=== PATIENT | female | born 1960 | race Caucasian/White ===

== ENCOUNTER → 2017-04-28 14:21 | Outpatient (CLI) | payer BC, SELFPAY ==
[2017-04-30 08:22] LABS: Immunoglobulin A, Qn 281 mg/dL (87-352); Immunoglobulin G, Qn 1238 mg/dL (700-1600)
[2017-04-30 18:30] LABS: Immunoglobulin M, Qn 120 mg/dL (26-217)
[2017-05-02 13:38] LABS: IgG, Subclass 1 727 mg/dL (248-810)
[2017-05-05 11:58] LABS: Immunoglobulin E, Total 69 IU/mL (0-100)
== END ==
PROVIDERS: Visit Provider Nurse Practitioner Family
DX: R05 Cough (principal); J40 Bronchitis, not specified as acute or chronic
CPT/HCPCS: 36415; 82784; 82785; 82787

== ENCOUNTER → 2017-11-15 15:55 | Outpatient (CLI) | payer BC, SELFPAY ==
--- NOTE | 2017-11-15 16:01 | XR_ITS ---
XR chest 2V HISTORY: Shortness of breath, bronchitis ITS.REASON: BRONCHITIS ORDERING PHYSICIAN: Timothy Orlando MD PATIENT AGE: 57 years COMPARISON: 08/07/2017 FINDINGS: Right infrahilar mass once again noted and may be unchanged to slightly more prominent given the difference in technique. There is thickening of the right minor fissure with elevated right hemidiaphragm. Left lung is clear. No evidence of CHF. Mild thoracic scoliosis convex right. No acute bony anomalies. IMPRESSION: Persistent right infrahilar mass consistent with neoplasm with right middle lobe volume loss and elevated right hemidiaphragm
== END ==
PROVIDERS: PCP Internal Medicine Adolescent Medicine; Visit Provider Internal Medicine Adolescent Medicine
DX: J40 Bronchitis, not specified as acute or chronic (principal)
CPT/HCPCS: 71046

== ENCOUNTER → 2017-12-06 10:31 | Outpatient (POV) | payer BC, SELFPAY | PROVIDERS: Visit Provider Internal Medicine | DX: Z00.00 Encounter for general adult medical examination without abnormal findings (principal) ==

== ENCOUNTER → 2018-03-06 08:39 | Outpatient (POV) | payer BC, SELFPAY | PROVIDERS: Visit Provider Internal Medicine | DX: Z00.00 Encounter for general adult medical examination without abnormal findings (principal) ==

== ENCOUNTER → 2018-04-19 12:01 | Outpatient (CLI) | payer BC, SELFPAY ==
[2018-04-19 12:47] LABS: Basophils % 0.4 % (0.1-2.0); Eosinophils # 0.1 K/mm3 (0.0-0.4); Eosinophils % 1.2 % (0.1-12.0); Hematocrit 39.4 % (37.0-47.0); Hemoglobin 12.9 g/dL (12.2-16.2); Lymphocytes # 1.4 K/mm3 (0.7-4.5); Lymphocytes % 28.4 % (10-50); Mean Corpuscular HGB Conc 32.8 g/dL (31.8-35.4); Mean Corpuscular Hemoglobin 29.7 pg (27.0-31.2); Mean Corpuscular Volume 90.5 fl (81-99); Mean Platelet Volume 6.5 fl (7.4-10.4); Monocytes # 0.3 K/mm3 (0.1-1.0); Neutrophils # 3.2 K/mm3 (1.8-7.8); Neutrophils % 64.1 % (37.0-80.0); Platelet Count 264 K/mm3 (142-424); Red Blood Count 4.35 M/mm3 (4.20-5.40); Red Cell Distribution Width 13.8 % (11.5-17.5)
[2018-04-19 14:50] LABS: Alanine Aminotransferase 24 U/L (12-78); Albumin Level 3.6 gm/dL (3.4-5.0); Albumin/Globulin Ratio 0.9 (1.1-1.8); Alkaline Phosphatase 85 U/L (46-116); Anion Gap 11.5 mEq/L (5-15); Aspartate Amino Transferase 20 U/L (15-37); Bilirubin,Total 0.5 mg/dL (0.2-1.0); Blood Urea Nitrogen 12 mg/dL (7-18); Calcium 9.5 mg/dL (8.5-10.1); Carbon Dioxide 31 mmol/L (21.0-32.0); Chloride 101 mmol/L (98-107); Chol/HDL Ratio 2.9 (1-3.5); Cholesterol 159 mg/dL (140-200); Creatinine,Serum 0.73 mg/dL (0.55-1.02); Estimated Glomerular Filt Rate 82 ml/min (>60); GFR (African American) 100 ML/MIN (>60); Globulin 3.8 gm/dl (1.3-3.2); Glucose 88 mg/dL (74-106); HDL Cholesterol 54 mg/dL (29-89); LDL Cholesterol 97 mg/dL (0-130); Potassium 4.5 mmoL/L (3.5-5.1); Sodium 139 mmol/L (136-145); Thyroid Stimulating Hormone 0.97 uIU/ml (0.358-3.740); Total Protein,Serum 7.4 gm/dL (6.4-8.2); Triglycerides 42 mg/dL (30-200); VLDL Cholesterol 8 mg/dL (0-40)
[2018-04-20 09:50] LABS: Vitamin B12 478 pg/mL (232-1245); Vitamin D 25 Hydroxy 60.3 ng/mL (30.0-100.0)
== END ==
PROVIDERS: Visit Provider Nurse Practitioner Family
DX: Z00.00 Encounter for general adult medical examination without abnormal findings (principal); R53.83 Other fatigue
CPT/HCPCS: 36415; 80053; 80061; 82607; 82652; 84443; 85025

== ENCOUNTER 2019-02-26 08:30 | Outpatient (RCR) | payer OTHER, BC, SELFPAY ==
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
== END 2019-02-26 08:35 | disposition home or self-care (01) ==
LOC: PT 08:30
PROVIDERS: PCP Nurse Practitioner Family; Visit Provider Internal Medicine Adolescent Medicine
DX: M54.42 Lumbago with sciatica, left side (principal); S16.1XXS Strain of muscle, fascia and tendon at neck level, sequela; R07.89 Other chest pain
CPT/HCPCS: 97010; 97014; 97033; 97110; 97140; 97163; 97164; G0283

== ENCOUNTER 2019-05-03 09:00 | Outpatient (RCR) | payer BC, OTHER, SELFPAY | END 2019-05-03 10:05 | disposition home or self-care (01) | LOC: PT 09:00 | PROVIDERS: PCP Nurse Practitioner Family; Visit Provider Neurological Surgery | DX: S12.9XXA Fracture of neck, unspecified, initial encounter (principal); M54.2 Cervicalgia | CPT/HCPCS: 97010; 97012; 97014; 97035; 97110; 97140; 97163; 97164; G0283 ==

== ENCOUNTER → 2019-05-05 11:07 | Outpatient (CLI) | payer BC, SELFPAY ==
--- NOTE | 2019-05-05 11:43 | XR_ITS ---
PROCEDURE: XR CHEST 2V Patient Age:58Y CLINICAL HISTORY: PERSISTENT COUGH , CHRONIC BRONCHITIS COMPARISON: ABDPELW/O CT ABD PELVIS W/O CONTRAST from 12/09/2013 CXR2V XR chest 2V from 08/07/2017 CXR2V XR chest 2V from 11/15/2017 CXR2 XR chest AP from 12/03/2017 FINDINGS: PA and lateral chest performed today and compared to above studies Right infrahilar mass is unchanged since the previous studies from November, July and October 2017 CXR We again see elevation the right hemidiaphragm but overall there is slightly better inspiration today with no discrete acute new findings. On the lateral view we again see linear scarring in density along the fissure and into the posterior RLL . No pleural effusion or pneumothorax. No new focal pneumonia is identified. The heart is upper normal in size. Elevation right hemidiaphragm is similar. The generous right celeste shadow is stable. Left celeste unchanged. Superior mediastinum unremarkable. Ribs of unremarkable. Mild dextro curvature of the mid T-spine again noted and stable . bilateral breast implants again noted . IMPRESSION: Right infrahilar mass is again noted and has not changed appreciably since 2018 multiple comparison CXR studies No additional new or acute findings otherwise seen Dictated by: Asif Nava MD 05/05/2019 13:27 Electronically signed by Asif Nava MD in [place] 05/05/2019 13:27
== END ==
PROVIDERS: PCP Nurse Practitioner Family; Referring Provider Nurse Practitioner Family; Visit Provider Nurse Practitioner Family
DX: R05 Cough (principal); J01.10 Acute frontal sinusitis, unspecified
CPT/HCPCS: 71046

== ENCOUNTER → 2020-03-25 17:35 | Outpatient (CLI) | payer BC, SELFPAY ==
[2020-03-25 17:47] LABS: Chloride 100 mmol/L (98-107); Potassium 4.1 mmoL/L (3.5-5.1); Sodium 137 mmol/L (136-145)
[2020-03-25 17:50] LABS: Alanine Aminotransferase 17 U/L (12-78); Albumin Level 3.9 g/dl (3.5-5.0); Albumin/Globulin Ratio 1.2 (1.1-1.8); Alkaline Phosphatase 87 U/L (38-126); Anion Gap 10.1 mEq/L (5-15); Aspartate Amino Transferase 29 U/L (14-36); Bilirubin,Total 0.5 mg/dl (0.2-1.3); Blood Urea Nitrogen 19 mg/dl (7-17); Carbon Dioxide 31 mmol/L (22.0-30.0); Cholesterol 159 mg/dl (140-200); Estimated Glomerular Filt Rate 57 ml/min (>60); GFR (African American) 69 ML/MIN (>60); Globulin 3.2 g/dL (1.3-3.2); Total Protein,Serum 7.1 g/dl (6.3-8.2); Triglycerides 135 mg/dl (30-150); VLDL Cholesterol 27 mg/dL (0-40)
[2020-03-25 17:51] LABS: Calcium 9.7 mg/dl (8.4-10.2); Chol/HDL Ratio 3.2 (1-3.5); Glucose 102 mg/dl (74-100); HDL Cholesterol 49 mg/dl (40-60)
[2020-03-25 18:01] LABS: Direct LDL Cholesterol 87.26 mg/dL (100-129)
[2020-03-25 19:39] LABS: Basophils % 0.6 % (0.1-2.0); Eosinophils # 0.1 K/mm3 (0.0-0.4); Eosinophils % 1.8 % (0.1-12.0); Hematocrit 40.2 % (37.0-47.0); Hemoglobin 12.4 g/dL (12.2-16.2); Lymphocytes # 1.9 K/mm3 (0.7-4.5); Mean Corpuscular HGB Conc 30.8 g/dL (31.8-35.4); Mean Corpuscular Hemoglobin 28.1 pg (27.0-31.2); Mean Corpuscular Volume 91.2 fl (81-99); Mean Platelet Volume 8.3 fl (7.4-10.4); Monocytes # 0.5 K/mm3 (0.1-1.0); Neutrophils # 3.6 K/mm3 (1.8-7.8); Neutrophils % 58.6 % (37.0-80.0); Platelet Count 260 K/mm3 (142-424); Red Blood Count 4.41 M/mm3 (4.20-5.40); Red Cell Distribution Width 13.8 % (11.5-17.5); White Blood Count 6.1 K/mm3 (4.8-10.8)
== END ==
PROVIDERS: Visit Provider Internal Medicine Adolescent Medicine
DX: J41.1 Mucopurulent chronic bronchitis (principal); E78.5 Hyperlipidemia, unspecified
CPT/HCPCS: 80053; 80061; 85025

== ENCOUNTER → 2020-04-03 09:40 | Outpatient (CLI) | payer BC, SELFPAY ==
--- NOTE | 2020-04-03 09:59 | CT_ITS ---
PROCEDURE: CT ANGIO CHEST CLINCIAL INDICATION: PAINFUL RESPIRATION,SOB Right-sided chest pain with wheezing, history of lung and bilateral breast cancer COMPARISON: CT ABDPELW/O CT ABD PELVIS W/O CONTRAST from 12/09/2013 CR CXR2 XR chest AP from 12/03/2017 TECHNIQUE: IV Contrast: 70ML Isovue 370 Axial images obtained with sagittal and coronal reformats. All CT scans at the facility use one or more dose reduction, viz: automated exposure control, ma/kV adjustment per patient size (including targeted exams where dose is matched to indication, i.e. head), or iterative reconstruction technique. FINDINGS: There are no previous chest CTs available for comparison. No evidence of aortic aneurysm or dissection. No evidence of pulmonary embolus. There is abnormal increased soft tissue density in the right hilar region surrounding the the hilar vessels and extending medially and posteriorly along the azygo esophageal region with increased soft tissue density in the as ago esophageal recess. There is narrowing of the right lower lobe bronchi and segmental bronchi of the right lower lobe. Increased density also is present along the right major fissure inferiorly. There is trace right-sided effusion. There is a 4 mm noncalcified nodule in the left apex. The left lung is otherwise unremarkable. The there are bilateral breast implants present. No acute bony findings evident. There is thoracic scoliosis convex right. IMPRESSION: 1. No evidence of aortic aneurysm or pulmonary embolus. 2. There is diffuse increased density along the right hilum and infrahilar region as described above with extension into the azygo esophageal recess. While some of this could be related to post radiation changes residual or recurrence neoplasm is also considered. Correlation with older studies are needed. No old exams are available at this institution for comparison. Dictated by: Zelalem Morton MD 04/03/2020 12:03 Zelalem Morton MD in [place] 04/03/2020 12:03
== END ==
PROVIDERS: PCP Internal Medicine Adolescent Medicine; Visit Provider Nurse Practitioner Family
DX: R06.02 Shortness of breath (principal); R07.1 Chest pain on breathing
CPT/HCPCS: 71275; Q9967

== ENCOUNTER 2020-07-20 10:26 | Emergency (ER) | payer BC, SELFPAY ==
[2020-07-20 10:42] VITALS: BP 131/92; PULSE 95; RESP 18; TEMP 36.5; O2SAT 98; BMI 33.4
[2020-07-20 10:52] LABS: UTC Strep Screen (Rapid) Positive (Negative)
--- NOTE | 2020-07-20 11:20 | HMH.EDUTC ---
[facility] [place] Disposition Clinical Impression: Strep throat Disposition: Home, Self-Care Condition on Discharge: Good Instructions: Strep Throat, DI for Strep Throat Additional Instructions: Drink plenty of fluids. Take tylenol or ibuprofen for pain or fever. Take the medications as directed. Follow up with your regular doctor. GO TO THE ER FOR ANY WORSENING SYMPTOMS Throw your tooth brush away and get a new one. Prescriptions: Promethazine/Dextromethorphan [Promethazine-Dm Syrup] 5 ml PO Q6HP PRN #240 syrup PRN Reason: Cough Transmission Status: Received by [id number] Ondansetron [Zofran 4mg ODT] 4 mg PO Q8HP PRN #20 tab.rapdis PRN Reason: Nausea Transmission Status: Received by [id number] Amoxicillin/Potassium Clav [Augmentin 875-125 Tablet] 1 tab PO Q12H 10 Days #20 tab Transmission Status: Received by [id number] Referrals: Bruno Murdock MD [Primary Care Provider] - Time of Disposition: 11:26 Medical Decision Making - Medical Records Medical records reviewed: No: I reviewed the patient's medical records. - Capo Inquiry Pt receiving controlled substance: No Vital Signs: 07/20/20 10:42 07/20/20 11:29 Temperature 97.7 F 97.7 F Temperature Source Oral Pulse Rate 90 Pulse Rate [Right] 95 H Respiratory Rate 18 20 Blood Pressure 134/87 Blood Pressure [Left Arm] 131/92 H Blood Pressure Mean [Left Arm] 105 Blood Pressure Source [Left Arm] Automatic Cuff Blood Pressure Position [Left Arm] Sitting 02 Sat by Pulse Oximetry 98 - Lab Data Lab results reviewed: Yes: I reviewed the patient's lab results. Lab Results 07/20/20 10:50: Strep Scn Rapid Clinic Positive A [facility] [place] HPI - General Stated complaint: sore throat Time Seen by Provider: 07/20/20 10:50 Mode of Arrival: Ambulatory Source of Information: Patient Limitations: No Limitations Description of Symptoms (Recalled from Triage Doc. by RN): pt c/o a sore throat. states four of her grandchildren have step. HEENT Symptoms (Recalled from RN notes): Yes (sore throat) Resp Symptoms (Recalled from RN notes): No Skin Symptoms (Recalled from RN notes): No MS Symptoms (Recalled from RN notes): No Functional Status (Recalled from RN notes): na - History of Present Illness Provider Complaint: She c/o sore throat for the past 2 days. She has had a cough and n/v also. - Related Data Home Medications Medication Instructions Recorded Confirmed Bisoprolol/Hydrochlorothiazide 1 tab PO BID 08/07/17 05/26/18 [Bisoprolol-Hctz 2.5-6.25 mg Tb] Exemestane 25 mg PO DAILY 08/07/17 05/26/18 aspirin 81 mg chewable tablet 81 mg PO DAILY 11/25/17 05/26/18 Cholecalciferol (Vitamin D3) 2,000 unit PO DAILY 12/03/17 05/26/18 [Vitamin D3 1,000 Unit Cap] Cetirizine HCl [Zyrtec] 10 mg PO DAILY 05/23/18 05/26/18 Cyanocobalamin/Folic Acid [Vitamin 1 each PO DAILY 05/23/18 05/26/18 [id number] Acid Tablet] Previous Rx's Medication Instructions Recorded Amoxicillin/Potassium Clav 1 tab PO Q12H 10 Days #20 tab 07/20/20 [Augmentin 875-125 Tablet] Ondansetron [Zofran 4mg ODT] 4 mg PO Q8HP PRN #20 tab.rapdis 07/20/20 Promethazine/Dextromethorphan 5 ml PO Q6HP PRN #240 syrup 07/20/20 [Promethazine-Dm Syrup] Allergies Allergy/AdvReac Type Severity Reaction Status Date / Time scopolamine Allergy Verified 07/20/20 10:47 clarithromycin [From Biaxin] AdvReac Mild NA-NAUSEA/V Verified 07/20/20 10:47 OMITING doxycycline AdvReac Mild NA-NAUSEA/V Verified 07/20/20 10:47 OMITING - Worker's Comp Is this a Worker's Comp case?: No H History - Hepatitis A Screen Drug use history?: No High risk sexual behaviors?: No History of sexually transmitted infection?: No Currently employed?: No Childcare worker?: No Do you have indoor plumbing?: Yes Do you have electricity?: Yes Attestation statement:: This patient has been screened for Hepatitis A risk factors. I have revie
[2020-07-20 11:29] VITALS: BP 134/87; PULSE 90; RESP 20; TEMP 36.5
== END 2020-07-20 11:29 | disposition home or self-care (01) ==
PROVIDERS: Emergency Provider Nurse Practitioner Family; PCP Internal Medicine Adolescent Medicine
DX: J02.0 Streptococcal pharyngitis (principal); I10 Essential (primary) hypertension; Z85.118 Personal history of other malignant neoplasm of bronchus and lung
CPT/HCPCS: 87880; 99202; G0463

== ENCOUNTER 2020-09-01 10:25 | Emergency (ER) | payer BC, SELFPAY ==
[2020-09-01 10:25] VITALS: BP 164/95; PULSE 100; RESP 24; TEMP 36.8; O2SAT 95; BMI 34.3
--- NOTE | 2020-09-01 10:46 | XR_ITS ---
PROCEDURE: XR CHEST 2V CLINICAL HISTORY: COUGH COMPARISON: CR CXR2V XR chest 2V from 11/15/2017 CR CXR2 XR chest AP from 12/03/2017 CR XR CHEST 2V from 05/05/[address] ANGIO CHEST from 04/03/2020 FINDINGS: The heart size is within normal limits. There is chronic increased density in the right hilum with some mild right-sided lung volume loss with elevated hemidiaphragm and mild midline shift of the trachea toward the right. The density in the right hilum appears slightly more prominent along its superior margin now having a more rounded appearance. Volume loss with atelectatic or scarring changes present in the superior segment of the right lower lobe and in the right middle lobe.. The remaining lungs are clear. There is mild midthoracic curvature convex right. IMPRESSION: Chronic increased density in the right hilum. This may be slightly more prominent compared to the previous exam. Recurrence of neoplasm is not excluded. Dedicated chest CT with contrast may provide further evaluation. Dictated by: Zelalem Morton MD 09/01/2020 11:33 Zelalem Morton MD in [place] 09/01/2020 11:33
[2020-09-01 11:02] LABS: UTC Strep Screen (Rapid) Negative (Negative)
[2020-09-01 11:03] VITALS: BP 164/95; PULSE 100; RESP 24; TEMP 36.8; O2SAT 95
--- NOTE | 2020-09-01 11:09 | HMH.EDUTC ---
[facility] [place] Disposition Clinical Impression: Bronchitis Disposition: Home, Self-Care Condition on Discharge: Good Instructions: Chronic Bronchitis, DI for Chronic Bronchitis, Amoxicillin and Clavulanic Acid Additional Instructions: ? Start antibiotic today. Be sure to complete entire prescription even if feeling better ? Monitor temp. Tylenol every 4 hours as needed and / or ibuprofen every 6 hours as needed ( As long as your primary care physician has told you that it ok to take both. For fever/aches/pains ER if no less than 101 despite Tylenol or Motrin ? Humidifier/vaporizer or hot steamy shower ? Inhaler every 4-6 hours as needed like we discussed. If unsure how to use it, ask pharmacist to demonstrate how. Should help open airways and improve cough, wheezing, and shortness of breath Use your nebulizer machine and medication as prescribed ? Mucinex during the day for your cough and cough suppressant only at night. Be sure to drink lots of water. I *Start steroid today. Helps with inflammation therefore, cough and wheezing. Follow directions on the package. Reviewed side effects. Patient reports taking them before. Follow up IMMEDIATELY for new or worsening of symptoms OR no noticeable improvement over the next 48-72 hours. 911 immediately for any life threatening symptoms such as chest pain or difficulty breathing Prescriptions: Amoxicillin/Potassium Clav [Augmentin 875-125 Tablet] 1 tab PO Q12H 10 Days #20 tab Transmission Status: Received by [facility] # [id number] [Prednisone 20mg Tab] 20 mg PO BID 5 Days #10 tab Transmission Status: Received by [facility] #[id number] Referrals: Bruno Murdock MD [Primary Care Provider] - As needed Time of Disposition: 11:41 Medical Decision Making - Capo Inquiry Pt receiving controlled substance: No Capo was queried for this patient: No Vital Signs: 09/01/20 10:25 09/01/20 11:03 Temperature 98.3 F 98.3 F Temperature Source Oral Pulse Rate 100 H Pulse Rate [Right Brachial] 100 H Respiratory Rate 24 24 Blood Pressure 164/95 H Blood Pressure [Right Arm] 164/95 H Blood Pressure Mean [Right Arm] 118 Blood Pressure Source [Right Arm] Automatic Cuff Blood Pressure Position [Right Arm] Sitting 02 Sat by Pulse Oximetry 95 Oxygen Delivery Method Room Air - Lab Data Lab results reviewed: Yes: I reviewed the patient's lab results. Lab Results 09/01/20 10:36: Strep [facility] Negative Orders (Tests/Meds): ORDERS Category Date Time Status Strep Screen Confirmation Stat Micro 09/01/20 10:36 Received - Radiology Data #1 Image(s): Chest Image Reviewed: Yes I have reviewed radiologist's interpretation Chronic increased density in the right hilum. This may be slightly more prominent compared to the previous exam. Recurrence of neoplasm is not excluded. Dedicated chest CT with contrast may provide further evaluation. Medical Decision Narrative: Patient advised she has Chest CT scheduled later this month by her PCP Discussed duoneb and patient declined states that she has it at home and will take it when she gets there [facility] [place] HPI - General Stated complaint: Sore throat; earache; congestion Time Seen by Provider: 09/01/20 11:09 Mode of Arrival: Ambulatory Source of Information: Patient Limitations: No Limitations Description of Symptoms (Recalled from Triage Doc. by RN): PATIENT C/O SORE THROAT, PRODUCTIVE COUGH WITH GREEN SPUTUM, AND RIGHT EAR PAIN SINCE TUESDAY HEENT Symptoms (Recalled from RN notes): Yes Resp Symptoms (Recalled from RN notes): Yes Skin Symptoms (Recalled from RN notes): No MS Symptoms (Recalled from RN notes): No Functional Status (Recalled from RN notes): WNL - History of Present Illness Provider Complaint: Patient state that she has not been feeling well since Tuesday State that she has been having right ear pain, sore throat, sinus congestion and pressure, and cough State that at times she is c
== END 2020-09-01 11:46 | disposition home or self-care (01) ==
PROVIDERS: Emergency Provider Nurse Practitioner; PCP Internal Medicine Adolescent Medicine
DX: J20.9 Acute bronchitis, unspecified (principal); I10 Essential (primary) hypertension; Z88.1 Allergy status to other antibiotic agents
CPT/HCPCS: 71046; 87880; 99202; G0463

== ENCOUNTER 2020-09-02 21:19 | Observation (INO) | payer BC, SELFPAY ==
[2020-09-02 21:20] VITALS: BP 160/97; PULSE 117; RESP 21; TEMP 36.8; O2SAT 96; BMI 33.7
--- NOTE | 2020-09-02 21:42 | CT_ITS ---
PROCEDURE INFORMATION: Exam: CTA Chest With Contrast Exam date and time: 09/02/2020 9:42 PM Age: 60 years old Clinical indication: Cough and shortness of breath and other: Coughing up blood; Prior surgery; Surgery date: 6+ months; Surgery type: Breast cancer bilateral mastectomy; Patient HX: HX lung and breast cancer coughing up blood and SOB tonight; Additional info: SOA, coughing up blood TECHNIQUE: Imaging protocol: Computed tomographic angiography of the chest with contrast. 3D rendering (Not supervised by radiologist): MIP and/or 3D reconstructed images were created by the technologist. Radiation optimization: All CT scans at this facility use at least one of these dose optimization techniques: automated exposure control; mA and/or kV adjustment per patient size (includes targeted exams where dose is matched to clinical indication); or iterative reconstruction. Contrast material: ISOVUE 370; Contrast volume: 70 ml; Contrast route: INTRAVENOUS (IV); COMPARISON: CT ANGIO CHEST 04/03/2020 11:20 AM FINDINGS: Pulmonary arteries: No acute pulmonary emboli. Aorta: Unremarkable. No aortic aneurysm. No aortic dissection. Lungs: Right lower lobe appears lucent relative to the left lung, likely secondary to air trapping from right hilar mass bronchial compression. Pleural spaces: Unremarkable. No pneumothorax. No pleural effusion. Heart: Unremarkable. No cardiomegaly. No pericardial effusion. Mediastinal space: 4.0 x 7.6 x 3.2 cm soft tissue attenuation mass in the region of the right hilum, causing narrowing of the right hilar structures, most compatible with patient's known lung carcinoma/treatment changes, similar to comparison study. Lymph nodes: Unremarkable. No enlarged lymph nodes. Gallbladder and bile ducts: Gallbladder surgically absent. Bones/joints: Unremarkable. No acute fracture. Soft tissues: Bilateral breast implants. IMPRESSION: 1. No acute pulmonary emboli. 2. 4.0 x 7.6 x 3.2 cm soft tissue attenuation mass in the region of the right hilum, causing narrowing of the right hilar structures, most compatible with patient's known lung carcinoma/treatment changes, similar to comparison study.
--- NOTE | 2020-09-02 21:42 | XR_ITS ---
PROCEDURE: XR CHEST 2V CLINICAL HISTORY: SOA Shortness of air with hemoptysis with history of lung cancer COMPARISON: CR CXR2 XR chest AP from 12/03/2017 CR XR CHEST 2V from 05/05/[address] ANGIO CHEST from 04/03/2020 CR XR CHEST 2V from 09/01/[address] ANGIO CHEST PE PROTOCOL from 09/02/2020 FINDINGS: Right hilar mass with elevated right hemidiaphragm once again noted. Volume loss is present in the superior segment of the right lower lobe and in the right middle lobe. There is mild mediastinal shift toward the right as before. Left lung is clear. There is elevation of the right hemidiaphragm. No acute bony anomalies IMPRESSION: Overall no change in the right hilar mass with underlying atelectasis or fibrotic change in the right middle lobe and superior segment right lower lobe Dictated by: Zelalem Morton MD 09/05/2020 13:21 Zelalem Morton MD in [place] 09/05/2020 13:21
--- NOTE | 2020-09-02 21:52 | ECG_ITS ---
APPROVED REPORT Exam: Resting ECG HR:113 bpm ECG Measurements Heart Rate 113 AXES RI 148 P 49 QRSd 120 QRS 47 QT 352 T 47 QTc 482 Conclusion Sinus tachycardia with frequent premature ventricular complexes Possible Left atrial enlargement Right bundle branch block Abnormal ECG Electronically signed by : Bruno Murdock, 09/03/2020 17:40:22
[2020-09-02 22:09] LABS: Basophils % 0.2 % (0.1-2.0); Eosinophils % 0.3 % (0.1-12.0); Hematocrit 38.1 % (37.0-47.0); Hemoglobin 12.6 g/dL (12.2-16.2); Lymphocytes % 12.1 % (10-50); Mean Corpuscular HGB Conc 33.2 g/dL (31.8-35.4); Mean Corpuscular Hemoglobin 29.3 pg (27.0-31.2); Mean Corpuscular Volume 88.2 fl (81-99); Monocytes # 0.2 K/mm3 (0.1-1.0); Monocytes % 1.9 % (1.7-9.3); Neutrophils # 6.7 K/mm3 (1.8-7.8); Neutrophils % 85.5 % (37.0-80.0); Platelet Count 278 K/mm3 (142-424); Red Blood Count 4.32 M/mm3 (4.20-5.40); Red Cell Distribution Width 14.2 % (11.5-17.5); White Blood Count 7.9 K/mm3 (4.8-10.8)
[2020-09-02 22:13] LABS: MANUAL DIFFERENTIAL MANUAL DIFFERENTIAL (MANUAL DIFF)
[2020-09-02 22:15] LABS: Alanine Aminotransferase 36 U/L (12-78); Albumin Level 4.4 g/dl (3.5-5.0); Alkaline Phosphatase 92 U/L (38-126); Aspartate Amino Transferase 45 U/L (14-36); Bilirubin,Direct 0.4 mg/dl (0.0-0.4); Bilirubin,Indirect 0.1 mg/dL (0.0-0.9); Bilirubin,Total 0.5 mg/dl (0.2-1.3); Bilirubin,Unconjugated 0.1 mg/dL (0.0-1.1); Blood Urea Nitrogen 19 mg/dl (7-17); Calcium 9.5 mg/dl (8.4-10.2); Carbon Dioxide 30 mmol/L (22.0-30.0); Chloride 102 mmol/L (98-107); Creatinine Clearance Estimated 95 mL/min (50-200); Estimated Glomerular Filt Rate 64 ml/min (>60); GFR (African American) 78 ML/MIN (>60); Glucose 150 mg/dl (74-100); Sodium 140 mmol/L (136-145); Total Protein,Serum 8.2 g/dl (6.3-8.2)
[2020-09-02 22:16] VITALS: BP 142/92; PULSE 115; O2SAT 93
[2020-09-02 22:20] LABS: C-Reactive Protein 19.7 mg/L (0-4)
--- NOTE | 2020-09-02 22:20 | PC.NURSE ---
gone to radiology.
--- NOTE | 2020-09-02 22:32 | HMH.EDSOB ---
ED Disposition Clinical Impression: Major hemoptysis, Mass of right lung, RBBB Disposition: Admitted as Observation Condition on Discharge: Good Referrals: Bruno Murdock MD [Primary Care Provider] - Forms: Transfer Record - ED - Critical Care Critical Care Time: No Attestation: On 09/02/20, the high probability of a clinically significant, sudden or life threatening deterioration of the following system(s) required my full and direct attention, intervention and personal management. The time I documented below is in addition to time spent performing reported procedures but includes the following listed in this critical care notation. Medical Decision Making - Medical Records Medical records reviewed: Yes: I reviewed the patient's medical records. - Capo Inquiry Pt receiving controlled substance: No Vital Signs: 09/02/20 21:20 09/02/20 22:16 09/02/20 22:45 Temperature 98.2 F Temperature Source Oral Pulse Rate 115 H 101 H Pulse Rate [Left Radial] 117 H Respiratory Rate 21 Blood Pressure 142/92 H 141/83 H Blood Pressure [Right Arm] 160/97 H Blood Pressure Mean Blood Pressure Mean [Right Arm] 118 Blood Pressure Source [Right Arm] Automatic Cuff Blood Pressure Position [Right Arm] Supine 02 Sat by Pulse Oximetry 96 93 L 95 Oxygen Delivery Method Room Air 09/02/20 23:00 09/02/20 23:22 09/02/20 23:30 Temperature Temperature Source Pulse Rate 99 H 104 H 103 H Pulse Rate [Left Radial] Respiratory Rate Blood Pressure 129/79 147/91 H 141/98 H Blood Pressure [Right Arm] Blood Pressure Mean 112 Blood Pressure Mean [Right Arm] Blood Pressure Source [Right Arm] Blood Pressure Position [Right Arm] 02 Sat by Pulse Oximetry 94 L 96 96 Oxygen Delivery Method 09/03/20 00:01 09/03/20 00:31 09/03/20 01:03 Temperature Temperature Source Pulse Rate 100 H 109 H 104 H Pulse Rate [Left Radial] Respiratory Rate Blood Pressure 163/95 H 127/82 155/95 H Blood Pressure [Right Arm] Blood Pressure Mean Blood Pressure Mean [Right Arm] Blood Pressure Source [Right Arm] Blood Pressure Position [Right Arm] 02 Sat by Pulse Oximetry 95 95 96 Oxygen Delivery Method 09/03/20 01:31 09/03/20 02:01 09/03/20 02:30 Temperature Temperature Source Pulse Rate 105 H 99 H 96 H Pulse Rate [Left Radial] Respiratory Rate Blood Pressure 132/82 127/69 121/73 Blood Pressure [Right Arm] Blood Pressure Mean Blood Pressure Mean [Right Arm] Blood Pressure Source [Right Arm] Blood Pressure Position [Right Arm] 02 Sat by Pulse Oximetry 95 94 L 94 L Oxygen Delivery Method 09/03/20 03:00 Temperature Temperature Source Pulse Rate 95 H Pulse Rate [Left Radial] Respiratory Rate Blood Pressure 142/88 H Blood Pressure [Right Arm] Blood Pressure Mean Blood Pressure Mean [Right Arm] Blood Pressure Source [Right Arm] Blood Pressure Position [Right Arm] 02 Sat by Pulse Oximetry 92 L Oxygen Delivery Method - Lab Data Lab results reviewed: Yes: I reviewed the patient's lab results. Lab Results 09/02/20 21:58: WBC 7.9, RBC 4.32, Hgb 12.6, Hct 38.1, MCV 88.2, MCH 29.3, MCHC 33.2, RDW 14.2, Plt Count 278, MPV 7.0 L, Neut % (Auto) 85.5 H, Lymph % (Auto) 12.1, [place] % (Auto) 1.9, Eos % (Auto) 0.3, Baso % (Auto) 0.2, Neut # (Auto) 6.7, Lymph # (Auto) 1.0, [place] # (Auto) 0.2, Eos # (Auto) 0.0, Baso # (Auto) 0.0, Total Counted 100, Neutrophils % (Manual) 88 H, Lymphocytes % (Manual) 6 L, Monocytes % (Manual) 6, Platelet Estimate Normal, Hypochromasia 1+, Anisocytosis 1+, Microcytosis 1+ 09/02/20 21:58: Sodium 140, Potassium 4.0, Chloride 102, Carbon Dioxide 30, Anion Gap 12.0, BUN 19 H, Creatinine 0.90, Estimated Creat Clear 95, Estimated GFR 64, Est GFR ( Amer) 78, Glucose 150 H, Calcium 9.5, Total Bilirubin 0.5, Direct Bilirubin 0.4, Conjugated Bilirubin 0.0, Indirect Bilirubin 0.1, Unconjugated Bilirubin 0.1, AST 45 H,
[2020-09-02 22:34] LABS: Procalcitonin 0.044 ng/mL (0.0-2.0)
--- NOTE | 2020-09-02 22:38 | PC.NURSE ---
pt back in room from radiology.
[2020-09-02 22:40] LABS: Troponin I < 0.01 ng/ml (0.00-0.034)
[2020-09-02 22:45] VITALS: BP 141/83; PULSE 101; O2SAT 95
[2020-09-02 23:00] VITALS: BP 129/79; PULSE 99; O2SAT 94
[2020-09-02 23:22] VITALS: BP 147/91; PULSE 104; O2SAT 96
[2020-09-02 23:30] VITALS: BP 141/98; PULSE 103; O2SAT 96
[2020-09-02 23:34] LABS: Anisocytosis 1+; Hypochromasia 1+; Lymphocytes % 6 % (10-50); Microcytosis 1+; Monocytes % 6 % (2-9); Neutrophils % 88 % (42-76); Platelet Estimate Normal; Total Cells Counted 100
[2020-09-03] VITALS (10 sets, daily range): BP systolic 121–174; BP diastolic 69–95; PULSE 53–116; RESP 18–20; TEMP 36.6–36.9; O2SAT 92–99; BMI 33.5
[2020-09-03 00:29] LABS: Coronavirus 19, PCR Not Detected (NotDetected); Influenza A, PCR Not Detected (NotDetected); Influenza B, PCR Not Detected (NotDetected)
[2020-09-03 03:32] LABS: Erythrocyte Sedimentation Rate > 140 mm/hr (0-30)
--- NOTE | 2020-09-03 03:39 | PC.NURSE ---
Report called to Case at this time
--- NOTE | 2020-09-03 04:08 | PC.NURSE ---
pt arrived to floor via wheelchair per nurse
--- NOTE | 2020-09-03 07:28 | P.CONPHA_ITS ---
[facility] [place] Pharmacy VTE Monitoring - Patient Demographics Admission date: 09/02/20 Report Date: 09/03/20 Time: 07:29 Allergies/Adverse Reactions: Patient Allergies clindamycin Allergy (Verified 09/01/20 10:54) scopolamine Allergy (Verified 07/20/20 10:47) clarithromycin [From Biaxin] Adverse Reaction (Mild, Verified 07/20/20 10:47) NA-NAUSEA/VOMITING doxycycline Adverse Reaction (Mild, Verified 07/20/20 10:47) NA-NAUSEA/VOMITING Height: 1.63 m Weight: 88.564 kg Patient Problems: Current Active Problems Major hemoptysis (Acute) Mass of right lung (Acute) RBBB (Acute) - VTE Risk Labs: VTE Related Lab Results Hgb 12.6 g/dL (12.2-16.2) 09/02/20 21:58 Hct 38.1 % (37.0-47.0) 09/02/20 21:58 Plt Count 278 K/mm3 (142-424) 09/02/20 21:58 BUN 19 mg/dl (7-17) H 09/02/20 21:58 Creatinine 0.90 mg/dl (0.52-1.04) 09/02/20 21:58 Estimated Creat Clear 95 mL/min (50-200) 09/02/20 21:58 VTE Risk Level: Moderate Risk - Prophylaxis VTE Prophylaxis Ordered?: Yes Types of VTE Prophylaxis: TEDS Knee High Location of Applied Device: Bilateral Lower Extremeties
[2020-09-03 07:33] LABS: Anion Gap 9.5 mEq/L (5-15); Blood Urea Nitrogen 17 mg/dl (7-17); Calcium 9.1 mg/dl (8.4-10.2); Carbon Dioxide 29 mmol/L (22.0-30.0); Chloride 102 mmol/L (98-107); Creatinine Clearance Estimated 141 mL/min (50-200); Estimated Glomerular Filt Rate 102 ml/min (>60); GFR (African American) 124 ML/MIN (>60); Glucose 134 mg/dl (74-100); Potassium 3.5 mmoL/L (3.5-5.1); Sodium 137 mmol/L (136-145)
[2020-09-03 07:56] LABS: Basophils % 0.6 % (0.1-2.0); Eosinophils % 0.2 % (0.1-12.0); Hematocrit 35.1 % (37.0-47.0); Hemoglobin 11.8 g/dL (12.2-16.2); Lymphocytes # 0.8 K/mm3 (0.7-4.5); Lymphocytes % 17.8 % (10-50); Mean Corpuscular HGB Conc 33.6 g/dL (31.8-35.4); Mean Corpuscular Hemoglobin 29.4 pg (27.0-31.2); Mean Corpuscular Volume 87.4 fl (81-99); Mean Platelet Volume 7.9 fl (7.4-10.4); Monocytes # 0.1 K/mm3 (0.1-1.0); Monocytes % 2.7 % (1.7-9.3); Neutrophils # 3.7 K/mm3 (1.8-7.8); Neutrophils % 78.8 % (37.0-80.0); Platelet Count 228 K/mm3 (142-424); Red Blood Count 4.02 M/mm3 (4.20-5.40); Red Cell Distribution Width 14.1 % (11.5-17.5); White Blood Count 4.7 K/mm3 (4.8-10.8)
--- NOTE | 2020-09-03 08:13 | [facility].HPDC ---
General - General Admission date:: 09/03/20 Discharge date: 09/03/20 *Admission Date: 09/02/20 *Chief complaint: Cough with hemoptysis *History of present illness: 60-year-old white female with multiple lung problems including known history of breast cancer with lung mass, status post radiation with residual pulmonary fibrosis and chronic obstructive pulmonary disease with restrictive lung disease, complex situation following with pulmonary. She has had chronic cough over the past many years, but yesterday had the onset of a milder cough that resulted in a fairly significant amount of hemoptysis, approximately 2 tablespoons. Reported to the emergency department. Hemoglobin was stable, CTA of chest was done which revealed no evidence of PE. Lung mass was also noted which appeared stable based on previous imaging testing. There was bronchial narrowing but no evidence of bronchial obstruction. She was admitted overnight for further observation. [facility] History I have reviewed the patient's past medical history: Yes Medical History: Reports:: Arrhythmia, Cancer, Deep Vein Thrombosis, Hypertension, Lung Disease (hx lung cancer/ chronic pneumonia) Denies:: Diabetes Mellitus Type 1, Diabetes Mellitus Type 2, Internal Pacemaker, MRSA, Seizures *Have you ever received a pneumonia vaccine?: No *Have you received a flu vaccine this season?: No Other Medical History: Reports: Radiation Therapy. Denies: Blood Transfusion Reaction Laterality Cases: Bilateral: Mastectomy Other Surgeries: Yes: Cholecystectomy, Hysterectomy-Total. No: Pacemaker Amputation: No Fractures: No - *Social History Last grade of school completed: Advanced degree Smoking Status: Unknown if ever smoked Alcohol Intake: never *Occupational Status:: disabled Housing: house Household Members: spouse *Travel in the last 8 weeks: None Family Hx:: No significant family history Review of Systems - Review of Systems Review of systems:: pertinent systems reviewed and negative unless documented below - *Neurologic Denies headache(s), Denies seizure-like activity Exam Vital signs and Labs for Last 24 Hours: Temp Pulse Resp BP Pulse Ox 98.5 F 53 L 20 160/79 H 96 09/03/20 07:43 09/03/20 07:43 09/03/20 07:43 09/03/20 07:43 09/03/20 07:43 Laboratory Results - last 24 hr 09/02/20 21:58: WBC 7.9, RBC 4.32, Hgb 12.6, Hct 38.1, MCV 88.2, MCH 29.3, MCHC 33.2, RDW 14.2, Plt Count 278, MPV 7.0 L, Neut % (Auto) 85.5 H, Lymph % (Auto) 12.1, [place] % (Auto) 1.9, Eos % (Auto) 0.3, Baso % (Auto) 0.2, Neut # (Auto) 6.7, Lymph # (Auto) 1.0, [place] # (Auto) 0.2, Eos # (Auto) 0.0, Baso # (Auto) 0.0, Total Counted 100, Neutrophils % (Manual) 88 H, Lymphocytes % (Manual) 6 L, Monocytes % (Manual) 6, Platelet Estimate Normal, Hypochromasia 1+, Anisocytosis 1+, Microcytosis 1+, ESR > 140 H 09/02/20 21:58: Sodium 140, Potassium 4.0, Chloride 102, Carbon Dioxide 30, Anion Gap 12.0, BUN 19 H, Creatinine 0.90, Estimated Creat Clear 95, Estimated GFR 64, Est GFR ( Amer) 78, Glucose 150 H, Calcium 9.5, Total Bilirubin 0.5, Direct Bilirubin 0.4, Conjugated Bilirubin 0.0, Indirect Bilirubin 0.1, Unconjugated Bilirubin 0.1, AST 45 H, ALT 36, Alkaline Phosphatase 92, Troponin I < 0.01, C-Reactive Protein 19.7 H, Total Protein 8.2, Albumin 4.4, Procalcitonin 0.044 09/03/20 00:24: SARS-CoV-2 (PCR) Not detected, Influenza A Untype (PCR) Not detected, Influenza Type B (PCR) Not detected 09/03/20 06:51: WBC 4.7 L D, RBC 4.02 L, Hgb 11.8 L, Hct 35.1 L, MCV 87.4, MCH 29.4, MCHC 33.6, RDW 14.1, Plt Count 228, MPV 7.9, Neut % (Auto) 78.8, Lymph % (Auto) 17.8, [place] % (Auto) 2.7, Eos % (Auto) 0.2, Baso % (Auto) 0.6, Neut # (Auto) 3.7, Lymph # (Auto) 0.8, [place] # (Auto) 0.1, Eos # (Auto) 0.0, Baso # (Auto) 0.0 09/03/20 06:51: Sodium 137, Potassium 3.5, Chloride 102, Carbon Dioxide 29, Anion Gap 9.5, BUN 17, Creatinine 0.60 D, Estimated Creat Clear 141, Estimated GFR 102, Est GFR ( Amer) 124 D, Glucose
== END 2020-09-03 10:45 | disposition home or self-care (01) ==
LOC: ER 09-03 03:17 → 2ND 09-03 04:15
PROVIDERS: Admitting Provider Emergency Medicine; Emergency Provider Emergency Medicine; PCP Internal Medicine Adolescent Medicine; Visit Provider Internal Medicine Adolescent Medicine
DX: R04.2 Hemoptysis (principal); R91.8 Other nonspecific abnormal finding of lung field; Z85.3 Personal history of malignant neoplasm of breast; Z85.118 Personal history of other malignant neoplasm of bronchus and lung; Z86.718 Personal history of other venous thrombosis and embolism; Z88.8 Allergy status to other drugs, medicaments and biological substances; Z79.899 Other long term (current) drug therapy; I10 Essential (primary) hypertension; Z87.01 Personal history of pneumonia (recurrent); Z20.822 Contact with and (suspected) exposure to COVID-19
CPT/HCPCS: 36415; 71046; 71275; 80048; 80076; 84145; 84484; 85007; 85025; 85651; 86140; 93005; 96365; 96367; 96375; 99284; 99291; G0378; J1956; Q9967; U0003

== ENCOUNTER → 2020-09-12 08:30 | Outpatient (CLI) | payer BC, SELFPAY | PROVIDERS: Visit Provider Internal Medicine Critical Care Medicine | DX: Z20.822 Contact with and (suspected) exposure to COVID-19 (principal) | CPT/HCPCS: U0003 ==

== ENCOUNTER → 2021-04-08 11:25 | Outpatient (CLI) | payer BC, SELFPAY ==
[2021-04-08 13:55] LABS: Basophils # 0.1 K/mm3 (0-0.2); Basophils % 1.3 % (0.1-2.0); Eosinophils # 0.1 K/mm3 (0.0-0.4); Eosinophils % 2.6 % (0.1-12.0); Hemoglobin 12.9 g/dL (12.2-16.2); Lymphocytes # 1.3 K/mm3 (0.7-4.5); Lymphocytes % 28.2 % (10-50); Mean Corpuscular HGB Conc 31.3 g/dL (31.8-35.4); Mean Corpuscular Hemoglobin 29.1 pg (27.0-31.2); Mean Platelet Volume 7.7 fl (7.4-10.4); Monocytes # 0.4 K/mm3 (0.1-1.0); Monocytes % 7.5 % (1.7-9.3); Neutrophils # 2.8 K/mm3 (1.8-7.8); Neutrophils % 60.3 % (37.0-80.0); Platelet Count 255 K/mm3 (142-424); Red Blood Count 4.41 M/mm3 (4.20-5.40); White Blood Count 4.7 K/mm3 (4.8-10.8)
[2021-04-08 15:04] LABS: Alanine Aminotransferase 18 U/L (12-78); Albumin Level 4.1 g/dl (3.5-5.0); Albumin/Globulin Ratio 1.5 (1.1-1.8); Alkaline Phosphatase 83 U/L (38-126); Anion Gap 11.1 mEq/L (5-15); Aspartate Amino Transferase 33 U/L (14-36); Bilirubin,Total 0.8 mg/dl (0.2-1.3); Blood Urea Nitrogen 18 mg/dl (7-17); Calcium 9.6 mg/dl (8.4-10.2); Carbon Dioxide 31 mmol/L (22.0-30.0); Chloride 100 mmol/L (98-107); Chol/HDL Ratio 4.1 (1-3.5); Cholesterol 186 mg/dl (140-200); Estimated Glomerular Filt Rate 86 ml/min (>60); GFR (African American) 104 ML/MIN (>60); Globulin 2.7 g/dL (1.3-3.2); Glucose 81 mg/dl (74-100); HDL Cholesterol 45 mg/dl (40-60); Potassium 4.1 mmoL/L (3.5-5.1); Sodium 138 mmol/L (136-145); Total Protein,Serum 6.8 g/dl (6.3-8.2); Triglycerides 91 mg/dl (30-150); VLDL Cholesterol 18 mg/dL (0-40)
[2021-04-08 15:52] LABS: Vitamin B12 > 1000 pg/mL (239-931)
[2021-04-08 16:16] LABS: Thyroid Stimulating Hormone 1.14 uIU/mL (0.465-4.68)
== END ==
PROVIDERS: PCP Internal Medicine Adolescent Medicine; Visit Provider Nurse Practitioner Family
DX: Z00.00 Encounter for general adult medical examination without abnormal findings (principal); R53.83 Other fatigue; E66.9 Obesity, unspecified; Z68.36 Body mass index [BMI] 36.0-36.9, adult
CPT/HCPCS: 36415; 80053; 80061; 82306; 82607; 84443; 85025

== ENCOUNTER → 2021-07-13 09:16 | Outpatient (CLI) | payer OTHER, SELFPAY | PROVIDERS: Visit Provider Internal Medicine Pulmonary Disease | DX: Z01.812 Encounter for preprocedural laboratory examination (principal); Z11.52 Encounter for screening for COVID-19 | CPT/HCPCS: C9803; U0003; U0005 ==